=== PATIENT | female | born 1970 | race Caucasian/White ===

== ENCOUNTER 2016-06-20 08:35 | Emergency (ER) | payer MEDICARE, MEDICAID ==
[2016-06-20 08:51] VITALS: TEMP 98.1; BMI 40.9
[2016-06-20] MEDS ORDERED: DIAZEPAM 10 MG/2 ML TUBEX IM ONE (08:56)
--- NOTE | 2016-06-20 09:23 | EDPRACDOC ---
- General Information Chief Complaint: Generalized Weakness Stated Complaint: HYPERTENSION Time Seen by Provider: 06/20/16 08:52 Information Source: Family Mode of Arrival: Car Home Medications: Home Medications Simvastatin [Zocor] 40 mg PO 1800 05/24/12 Amoxicillin/Potassium Clav [Augmentin 500-125 Tablet] 1 tab PO .DAILY SEE COMMENTS 06/20/16 Aspirin [Aspirin EC] 81 mg PO DAILY 06/20/16 Diazepam [Valium] 5 mg PO BID #10 tablet 06/20/16 Lisinopril [Zestril] 20 mg PO DAILY 06/20/16 MetFORMIN (Immediate Release) [GLUCOPHAGE Immed Release] 500 mg PO BID 06/20/16 Metoprolol Succinate [Toprol Xl] 50 mg PO DAILY 06/20/16 Allergies/Adverse Reactions: Allergies Allergy/AdvReac Type Severity Reaction Status Date / Time morphine Allergy Severe anaphylaxis Verified 05/24/12 11:24 - History of Present Illness Onset: 2 days HPI: PT HAS A HX OF ANXIETY AND SAID HER DR TOOK HER OFF HER VALIUM ABOUT 1 MONTH AGO. SHE SAID SHE HAS HAD A PANIC ATTACK FOR 2 DAYS. SHE SAID SHE CAN'T STOP WORRYING. SHE DID NOT TAKE HER MEDS TODAY. Reason for Seeking Treatment: Self-referral Presents With: Reports: Anxiety Expresses: Reports: None Suicidal Plan: Reports: None Relevant History: Reports: Anxiety Able to Care for Self: Yes Able to Control Self: Yes Associated Signs and Symptoms: Reports: Anxiety ED Past Medical History - Patient Medical History Cardiac History: Reports: Coronary Artery Disease, Hypertension, Heart Attack, Hypercholesterolemia Psychological History: Reports: Depression Systemic History: Reports: Diabetes Surgical History: Reports: Cholecystectomy, Tonsillectomy/Adnoidectomy - Social Medical History Smoking Status: Heavy tobacco smoker (5 or more cigarettes/day or daily pipe/ cigar) ETOH: None Substance Abuse: None Lives In: Home EDM Review of Systems - Review of Systems ROS Negative Except as Marked: Yes All systems reviewed and were negative except as marked Psychiatric: Anxiety - Physical Exam Constitutional: Alert (Awake), Distress, Other (VERY ANXIOUS) Oriented to: Time, Person, Place Last recorded Vital Signs: Last Vital Signs Temp 98.1 F 06/20/16 08:48 Pulse 110 06/20/16 08:48 Resp 20 06/20/16 08:48 BP 163/81 06/20/16 08:48 Pulse Ox 93 01/09/17 08:48 Oxygen Pulse Oxygen Saturation 93 O2 Device Room Air Oxygen Flow Rate Fraction of Inspired Oxygen ( FIO2) - HEENT Head: Normal ( normocephalic) Eye Exam: Normal (PERRL, EOMI, Sclera white) Oropharynx: Normal (Pharynx:Moist without exudate,Gums-no swelling) ENT EAC: Normal TMJ: Normal Nose: No Symptoms Reported (septum midline) Neck: Normal (FROM, trachea at midline) - Respiratory/Cardiovascular Respiratory: Normal - CTA (BBS clear to auscultation without adventitious sounds ) Cardiovascular: Tachycardia - GI Auscultation: Normal (NABS) Palpation: Normal (Soft,No rebound or guarding, non distended) Tenderness: Non tender Reddy's Sign: Negative - Musculoskeletal Back: Normal (Non-Tender) Extremities: Normal (Normal tone, Pulses 2+ No cyanosis or edema, FROM) - Integumentary Skin: Normal, Warm, Dry Lymphatics: Normal (no adenopathy) - Neurologic Memory Impaired: Normal Motor Function: Normal (Normal tone, Pulses 2+ No cyanosis or edema, FROM) Cranial Nerve: Normal (CN II-X11 intact sensation, strength 5/5) Cerebellar: Normal Mood Description: Anxious Perception: Normal - Re-evaluation Re-evaluation 1 Re-evaluation Time: 09:53 (IMPROVED) - EKG EKG #1 EKG Time: 08:59 -: Yes EKG interpreted by me Rate: bpm: 98 [place]: Normal Rhythm: NSR Block: None Hypertrophy: None ST: Normal Decision Time to Discharge: 09:53 - Departure Yes I personally saw and evaluated the patient. Disposition: Home Condition: Fair Final Diagnosis: Anxiety Instructions: Weakness (General), Anxiety (ED) Education/Counseling Given To: Patient Education/Counseling Given Regarding: Diagnosis, Treatment, Follow Up Referrals: None,No Provider [Primary Care Provider] - One Week Prescriptions: Diazepam [Valium] 5 mg PO BID #10 tablet Additional Instructions: F/U WITH PCP
[2016-06-20 09:54] VITALS: BP 157/82; PULSE 90
== END 2016-06-20 10:01 | disposition home or self-care (01) ==
LOC: ED 08:35
DX: F41.9 Anxiety disorder, unspecified (principal); I25.10 Atherosclerotic heart disease of native coronary artery without angina pectoris; I10 Essential (primary) hypertension; E78.00 Pure hypercholesterolemia, unspecified; E11.9 Type 2 diabetes mellitus without complications; F32.9 Major depressive disorder, single episode, unspecified; F17.200 Nicotine dependence, unspecified, uncomplicated; Z79.899 Other long term (current) drug therapy
CPT/HCPCS: 93005; 96372; 99283; J3360